=== PATIENT | female | born 1985 | race Caucasian/White ===

== ENCOUNTER 2016-09-11 15:09 | Emergency (ER) | payer BC ==
[2016-09-11] MEDS ORDERED: SODIUM CHLORIDE 0.9% 1,000 ML ONE (16:51)
[2016-09-11] MEDS ORDERED: ONDANSETRON 4 MG VIAL ONE (16:51)
[2016-09-11] MEDS ORDERED: CEFTRIAXONE 1 GM VIAL ONE (16:51)
[2016-09-11] MEDS ORDERED: MORPHINE 4 MG/ML SYR ONE (16:52)
== END 2016-09-11 18:05 | disposition home or self-care (01) ==
LOC: ER 15:09
DX: N30.01 Acute cystitis with hematuria (principal); N10 Acute pyelonephritis
CPT/HCPCS: 36415; 80053; 81001; 83690; 84703; 85025; 87088; 96361; 96365; 96375